=== PATIENT | male | born 1950 | race Caucasian/White ===

== ENCOUNTER 2017-10-10 14:28 | Emergency (ER) | payer MEDICARE, OTHER ==
[~2017-10-10] VITALS: Ht 177.8 cm; Wt 81.7 kg
[~2017-10-10 14:28] MED LIST: AMLO10 PO; BUSP10 PO; CALCA500CH PO; CHOL10002 PO; DIAZ5 PO; FURO40 PO; Isosorbide Dini30 MG PO; K-Dur 20 meq T20 MEQ PO; LOSA50 PO; Levaquin500 MG PO; NITR.6SL SL; Percocet 5-3251 EACH PO; Roxicodone15 MG PO; TAMS.4ER PO; WARF4 PO; WARF5 PO; Zofran Odt4 MG SL
[2017-10-10] MEDS ORDERED: Ultram50 MG PO (15:13)
== END 2017-10-10 15:19 | disposition home or self-care (01) ==
LOC: ER 14:28
DX: M25.511 Pain in right shoulder (principal); I10 Essential (primary) hypertension; F41.9 Anxiety disorder, unspecified; I48.91 Unspecified atrial fibrillation; Z91.09 Other allergy status, other than to drugs and biological substances
CPT/HCPCS: 99282

== ENCOUNTER 2018-01-30 14:00 | Inpatient (IN) | payer MEDICARE ==
[~2018-01-30] VITALS: Ht 177.8 cm; Wt 77.4 kg
[~2018-01-30 14:00] MED LIST changes: +Ultram50 MG PO
[2018-01-30 14:54] LABS: BASOPHILS ABSOLUTE AUTO 0.02 K/mm3 (0.00-0.23); BASOPHILS PERCENT AUTO 0 % (0-2); EOSINOPHILS ABSOLUTE AUTO 0.02 K/mm3 (0.00-0.68); EOSINOPHILS PERCENT AUTO 0 % (0-6); Hemoglobin 14.1 g/dL (13.5-17.5); IMMATURE GRAN ABSOLUTE AUTO 0.05 K/mm3 (0.00-0.10); IMMATURE GRAN PERCENT AUTO 1 % (0-1); LYMPHOCYTES ABSOLUTE AUTO 1.22 K/mm3 (0.84-5.20); LYMPHOCYTES PERCENT AUTO 11 % (21-46); MONOCYTES ABSOLUTE AUTO 0.68 K/mm3 (0.16-1.47); MONOCYTES PERCENT AUTO 6 % (4-13); Mean Corpuscular HGB 29.8 pg (26.0-34.0); Mean Corpuscular HGB Conc 35.3 g/dL (31.5-36.5); Mean Corpuscular Volume 85 fL (80-100); Mean Platelet Volume 8.9 fL (9.1-12.4); NEUTROPHILS ABSOLUTE AUTO 8.85 K/mm3 (1.96-9.15); NEUTROPHILS PERCENT AUTO 82 % (41-73); Platelet Count 200 K/mm3 (150-400); RDW Coefficient Variation 13.3 % (11.7-14.2); RDW Standard Deviation 41.1 fL (35.1-46.3); Red Blood Cell Count 4.73 M/mm3 (4.30-5.90); White Blood Cell Count 10.84 K/mm3 (4.00-11.30)
[2018-01-30 15:23] LABS: Alanine Aminotransfer (ALT/SGP 22 U/L (12-78); Albumin/Globulin Ratio 1.2 (0.8-1.8); Alk Phos 105 U/L (50-136); Anion Gap 10 mmol/L (6-16); Aspartate Aminotrans (AST/SGOT 17 U/L (12-37); Bilirubin, Total 0.7 mg/dL (0.1-1.0); Blood Urea Nitrogen 24 mg/dL (8-24); Bun/Creatinine Ratio 23.8 (12.0-20.0); CO2, Blood 28 mmol/L (21-32); Calcium, Blood 8.7 mg/dL (8.5-10.1); Chloride, Blood 102 mmol/L (98-108); Creatinine, Blood 1.01 mg/dL (0.60-1.20); Globulin, Blood 3.3 g/dL (2.2-4.0); Glomerular Filtration Rate >60 (60-); Glucose, Blood 93 mg/dL (70-99); Potassium, Blood 2.9 mmol/L (3.5-5.5); Sodium, Blood 140 mmol/L (136-145); Total Protein, Blood 7.3 g/dL (6.4-8.2); Troponin I 0.017 ng/mL (0.000-0.040)
[2018-01-30 17:11] LABS: Source, Urine Clean Catch
[2018-01-30 17:16] LABS: Bilirubin, Urine Neg (Neg); Blood, Urine 3+ (Neg); Glucose Qualitative, Urine Neg (Neg); Ketones, Urine Neg (Neg); Leukocyte Esterase, Urine Neg (Neg); Nitrite, Urine Neg (Neg); Protein, Urine 1+ (Neg); Urobilinogen, Urine NORM (Normal); pH, Urine 6.5 (5.0-8.0)
[2018-01-30 17:30] LABS: Appearance, Urine Clear (Clear); Color, Urine Yellow (P-Yellow)
[2018-01-30 17:33] LABS: White Blood Cells, Urine 0-2 /hpf (0-5)
[2018-01-30 17:34] LABS: Bacteria Few /hpf; Squamous Epithelial Cells Few /hpf (Few)
[2018-01-31 05:09] LABS: BASOPHILS ABSOLUTE AUTO 0.01 K/mm3 (0.00-0.23); BASOPHILS PERCENT AUTO 0 % (0-2); EOSINOPHILS ABSOLUTE AUTO 0.05 K/mm3 (0.00-0.68); EOSINOPHILS PERCENT AUTO 1 % (0-6); Hematocrit 38.5 % (37.0-53.0); Hemoglobin 12.9 g/dL (13.5-17.5); IMMATURE GRAN ABSOLUTE AUTO 0.03 K/mm3 (0.00-0.10); IMMATURE GRAN PERCENT AUTO 0 % (0-1); LYMPHOCYTES ABSOLUTE AUTO 1.77 K/mm3 (0.84-5.20); LYMPHOCYTES PERCENT AUTO 20 % (21-46); MONOCYTES ABSOLUTE AUTO 0.86 K/mm3 (0.16-1.47); MONOCYTES PERCENT AUTO 10 % (4-13); Mean Corpuscular HGB 28.7 pg (26.0-34.0); Mean Corpuscular HGB Conc 33.5 g/dL (31.5-36.5); Mean Corpuscular Volume 86 fL (80-100); Mean Platelet Volume 9.4 fL (9.1-12.4); NEUTROPHILS ABSOLUTE AUTO 6.32 K/mm3 (1.96-9.15); NEUTROPHILS PERCENT AUTO 70 % (41-73); Platelet Count 216 K/mm3 (150-400); RDW Coefficient Variation 13.6 % (11.7-14.2); RDW Standard Deviation 42.5 fL (35.1-46.3); White Blood Cell Count 9.04 K/mm3 (4.00-11.30)
[2018-01-31 05:20] LABS: Alanine Aminotransfer (ALT/SGP 17 U/L (12-78); Albumin, Blood 3.4 g/dL (3.4-5.0); Albumin/Globulin Ratio 1.2 (0.8-1.8); Alk Phos 90 U/L (50-136); Anion Gap 10 mmol/L (6-16); Aspartate Aminotrans (AST/SGOT 15 U/L (12-37); Bilirubin, Total 0.5 mg/dL (0.1-1.0); Blood Urea Nitrogen 31 mg/dL (8-24); Bun/Creatinine Ratio 31.6 (12.0-20.0); CO2, Blood 29 mmol/L (21-32); Calcium, Blood 8.4 mg/dL (8.5-10.1); Chloride, Blood 103 mmol/L (98-108); Creatinine, Blood 0.98 mg/dL (0.60-1.20); Globulin, Blood 2.8 g/dL (2.2-4.0); Glomerular Filtration Rate >60 (60-); Glucose, Blood 89 mg/dL (70-99); Potassium, Blood 2.9 mmol/L (3.5-5.5); Sodium, Blood 142 mmol/L (136-145); Total Protein, Blood 6.2 g/dL (6.4-8.2)
[2018-02-01 05:26] LABS: Anion Gap 8 mmol/L (6-16); Blood Urea Nitrogen 38 mg/dL (8-24); Bun/Creatinine Ratio 35.5 (12.0-20.0); CO2, Blood 26 mmol/L (21-32); Calcium, Blood 8.5 mg/dL (8.5-10.1); Chloride, Blood 105 mmol/L (98-108); Creatinine, Blood 1.07 mg/dL (0.60-1.20); Glomerular Filtration Rate >60 (60-); Glucose, Blood 124 mg/dL (70-99); Potassium, Blood 3.5 mmol/L (3.5-5.5); Sodium, Blood 139 mmol/L (136-145)
[2018-02-01] MEDS ORDERED: Hydrochloroth12.5 MG PO (11:53)
[2018-02-01] MEDS ORDERED: AMLO10 PO (11:53)
[2018-02-01] MEDS ORDERED: Prinivil10 MG PO (11:54)
[2018-02-01] MEDS ORDERED: LORA1 PO (11:55)
[2018-02-01] MEDS ORDERED: ASPI81CH PO (13:48)
== END 2018-02-01 12:56 | disposition home or self-care (01) | DRG 305 ==
LOC: ER 14:00 → PCU 14:01
PROVIDERS: Emergency Medicine; Internal Medicine
DX: I16.0 Hypertensive urgency (principal); I70.1 Atherosclerosis of renal artery; I11.9 Hypertensive heart disease without heart failure; I48.2 Chronic atrial fibrillation; K70.40 Alcoholic hepatic failure without coma; E87.6 Hypokalemia; I25.10 Atherosclerotic heart disease of native coronary artery without angina pectoris; G89.29 Other chronic pain; M25.559 Pain in unspecified hip; R00.1 Bradycardia, unspecified; T46.5X5A Adverse effect of other antihypertensive drugs, initial encounter; Y92.230 Patient room in hospital as the place of occurrence of the external cause; M19.90 Unspecified osteoarthritis, unspecified site; Z95.1 Presence of aortocoronary bypass graft; Z87.891 Personal history of nicotine dependence; Z91.14 Patient's other noncompliance with medication regimen; Z79.899 Other long term (current) drug therapy
CPT/HCPCS: 36415; 71046; 80048; 80053; 81001; 84132; 84484; 85025; 93005; 93010; 93975; 96361; 96372; 96374; 96375; 99285-25; G0378; J0360; J1650; J1885; J1940; J2405; J3480; J7030

== ENCOUNTER 2021-12-07 20:20 | Emergency (ER) | payer MEDICARE ==
[~2021-12-07] VITALS: Ht 177.8 cm; Wt 81.7 kg
[~2021-12-07 20:20] MED LIST changes: +ASPI81CH PO; +Hydrochloroth12.5 MG PO; +LORA1 PO; +Prinivil10 MG PO
[2021-12-07 21:04] LABS: BASOPHILS ABSOLUTE AUTO 0.03 K/mm3 (0.00-0.23); BASOPHILS PERCENT AUTO 0 % (0-2); EOSINOPHILS ABSOLUTE AUTO 0.09 K/mm3 (0.00-0.68); EOSINOPHILS PERCENT AUTO 1 % (0-6); Hematocrit 36.3 % (37.0-53.0); Hemoglobin 11.5 g/dL (13.5-17.5); IMMATURE GRAN ABSOLUTE AUTO 0.06 K/mm3 (0.00-0.10); IMMATURE GRAN PERCENT AUTO 1 % (0-1); LYMPHOCYTES ABSOLUTE AUTO 0.83 K/mm3 (0.84-5.20); LYMPHOCYTES PERCENT AUTO 10 % (21-46); MONOCYTES PERCENT AUTO 11 % (4-13); Mean Corpuscular HGB 26.6 pg (26.0-34.0); Mean Corpuscular HGB Conc 31.7 g/dL (31.5-36.5); Mean Corpuscular Volume 84 fL (80-100); Mean Platelet Volume 9.3 fL (9.1-12.4); NEUTROPHILS ABSOLUTE AUTO 6.54 K/mm3 (1.96-9.15); NEUTROPHILS PERCENT AUTO 77 % (41-73); Platelet Count 207 K/mm3 (150-400); RDW Coefficient Variation 14.7 % (11.7-14.2); RDW Standard Deviation 45.5 fL (35.1-46.3); Red Blood Cell Count 4.32 M/mm3 (4.30-5.90); White Blood Cell Count 8.45 K/mm3 (4.00-11.30)
[2021-12-07 21:25] LABS: Albumin, Blood 3.5 g/dL (3.4-5.0); Bilirubin, Total 0.5 mg/dL (0.1-1.0); Bun/Creatinine Ratio 14.1 (12.0-20.0); Creatinine, Blood 0.92 mg/dL (0.60-1.20); Globulin, Blood 3.6 g/dL (2.2-4.0); Potassium, Blood 3.4 mmol/L (3.5-5.5); Total Protein, Blood 7.1 g/dL (6.4-8.2)
[2021-12-08] MEDS ORDERED: Prednisone20 MG PO (03:04)
[2021-12-08] MEDS ORDERED: ALBU90OI INH (03:04)
== END 2021-12-08 03:13 | disposition home or self-care (01) ==
LOC: ER 20:20
PROVIDERS: Physician Assistant
DX: J44.1 Chronic obstructive pulmonary disease with (acute) exacerbation (principal); R07.89 Other chest pain; R06.02 Shortness of breath; I10 Essential (primary) hypertension; R51.9 Headache, unspecified; Z79.899 Other long term (current) drug therapy; Z79.52 Long term (current) use of systemic steroids; Z79.82 Long term (current) use of aspirin; Z88.8 Allergy status to other drugs, medicaments and biological substances; Z87.891 Personal history of nicotine dependence; Z95.0 Presence of cardiac pacemaker
CPT/HCPCS: 36415; 71045; 80053; 83880; 84484; 85025; 93005; 93010; 94640; 94664; 96374; 99285-25; A9270

== ENCOUNTER 2022-06-21 10:46 | Emergency (ER) | payer MEDICARE ==
[~2022-06-21] VITALS: Ht 177.8 cm; Wt 81.7 kg
[~2022-06-21 10:46] MED LIST changes: +ALBU90OI INH; +Prednisone20 MG PO
[2022-06-21] MEDS ORDERED: PLAVIX75 MG PO (11:04)
[2022-06-21] MEDS ORDERED: COREG25 MG PO (11:04)
[2022-06-21] MEDS ORDERED: OXYC5 (11:04)
[2022-06-21] MEDS ORDERED: XARELTO10 M1 PO (11:04)
[2022-06-21 11:17] LABS: BASOPHILS ABSOLUTE AUTO 0.03 K/mm3 (0.00-0.23); BASOPHILS PERCENT AUTO 0 % (0-2); EOSINOPHILS ABSOLUTE AUTO 0.07 K/mm3 (0.00-0.68); EOSINOPHILS PERCENT AUTO 1 % (0-6); Hematocrit 37.5 % (37.0-53.0); IMMATURE GRAN ABSOLUTE AUTO 0.05 K/mm3 (0.00-0.10); IMMATURE GRAN PERCENT AUTO 1 % (0-1); LYMPHOCYTES ABSOLUTE AUTO 0.94 K/mm3 (0.84-5.20); LYMPHOCYTES PERCENT AUTO 12 % (21-46); MONOCYTES PERCENT AUTO 9 % (4-13); Mean Corpuscular HGB 26.7 pg (26.0-34.0); Mean Corpuscular Volume 83 fL (80-100); Mean Platelet Volume 9.4 fL (9.1-12.4); NEUTROPHILS ABSOLUTE AUTO 6.38 K/mm3 (1.96-9.15); NEUTROPHILS PERCENT AUTO 78 % (41-73); Platelet Count 207 K/mm3 (150-400); RDW Standard Deviation 42.8 fL (35.1-46.3); White Blood Cell Count 8.17 K/mm3 (4.00-11.30)
[2022-06-21 11:30] LABS: Albumin, Blood 3.4 g/dL (3.4-5.0); Bilirubin, Total 0.3 mg/dL (0.1-1.0); Bun/Creatinine Ratio 18.3 (12.0-20.0); Calcium, Blood 8.7 mg/dL (8.5-10.1); Creatinine, Blood 1.09 mg/dL (0.60-1.20); Globulin, Blood 3.4 g/dL (2.2-4.0); Potassium, Blood 3.3 mmol/L (3.5-5.5); Total Protein, Blood 6.8 g/dL (6.4-8.2)
[2022-06-21 12:02] LABS: Influenza A, PCR NEGATIVE (NEGATIVE); Influenza B, PCR NEGATIVE (NEGATIVE); Resp Syncytial Virus, PCR NEGATIVE (NEGATIVE); SARS-Cov-2 (COVID-19) PCR, MMC NEGATIVE (NEGATIVE)
[2022-06-21] MEDS ORDERED: ALBU90OI INH (13:58)
== END 2022-06-21 14:18 | disposition home or self-care (01) ==
LOC: ER 10:46
PROVIDERS: Emergency Medicine
DX: J44.1 Chronic obstructive pulmonary disease with (acute) exacerbation (principal); M25.562 Pain in left knee; R22.42 Localized swelling, mass and lump, left lower limb; I10 Essential (primary) hypertension; Z88.8 Allergy status to other drugs, medicaments and biological substances; Z79.02 Long term (current) use of antithrombotics/antiplatelets; Z79.899 Other long term (current) drug therapy; Z79.82 Long term (current) use of aspirin; Z87.891 Personal history of nicotine dependence; Z20.822 Contact with and (suspected) exposure to COVID-19
CPT/HCPCS: 0241U; 71045; 73562-LT; 80053; 84484; 85025; 93005; 93010; A9270

== ENCOUNTER 2022-11-10 11:04 | Inpatient (IN) | payer MEDICARE ==
[~2022-11-10] VITALS: Ht 167.6 cm; Wt 81.4 kg
[~2022-11-10 11:04] MED LIST changes: +COREG25 MG PO; +OXYC5; +PLAVIX75 MG PO; +XARELTO10 M1 PO
[2022-11-10 11:30] LABS: BASOPHILS ABSOLUTE AUTO 0.03 K/mm3 (0.00-0.23); BASOPHILS PERCENT AUTO 0 % (0-2); EOSINOPHILS ABSOLUTE AUTO 0.03 K/mm3 (0.00-0.68); EOSINOPHILS PERCENT AUTO 0 % (0-6); Hematocrit 35.9 % (37.0-53.0); Hemoglobin 11.5 g/dL (13.5-17.5); IMMATURE GRAN ABSOLUTE AUTO 0.04 K/mm3 (0.00-0.10); IMMATURE GRAN PERCENT AUTO 1 % (0-1); LYMPHOCYTES ABSOLUTE AUTO 0.74 K/mm3 (0.84-5.20); LYMPHOCYTES PERCENT AUTO 9 % (21-46); MONOCYTES ABSOLUTE AUTO 0.56 K/mm3 (0.16-1.47); MONOCYTES PERCENT AUTO 7 % (4-13); Mean Corpuscular Volume 84 fL (80-100); Mean Platelet Volume 9.2 fL (9.1-12.4); NEUTROPHILS ABSOLUTE AUTO 6.61 K/mm3 (1.96-9.15); NEUTROPHILS PERCENT AUTO 83 % (41-73); Platelet Count 189 K/mm3 (150-400); RDW Coefficient Variation 14.5 % (11.7-14.2); RDW Standard Deviation 44.5 fL (35.1-46.3); Red Blood Cell Count 4.26 M/mm3 (4.30-5.90); White Blood Cell Count 8.01 K/mm3 (4.00-11.30)
[2022-11-10 11:44] LABS: Albumin, Blood 3.7 g/dL (3.4-5.0); Albumin/Globulin Ratio 1.3 (0.8-1.8); Bilirubin, Total 0.5 mg/dL (0.1-1.0); Bun/Creatinine Ratio 24.4 (12.0-20.0); Calcium, Blood 8.6 mg/dL (8.5-10.1); Creatinine, Blood 0.98 mg/dL (0.60-1.20); Globulin, Blood 2.9 g/dL (2.2-4.0); Magnesium, Blood 2.2 mg/dL (1.6-2.4); Potassium, Blood 3.5 mmol/L (3.5-5.5); Total Protein, Blood 6.6 g/dL (6.4-8.2)
[2022-11-10 17:50] VITALS: BP 194/72
--- NOTE | 2022-11-10 18:23 | NUR ---
PCU ADMIT / END OF SHIFT PT BROUGHT TO PCU-02 BY ALMA FROM ER @ APPROX 1745. PT ABLE TO STAND & AMBULATE FROM [facility] TO PCU BED W/ SBA. PT A&O X4. BP ELEVATED, OTHERWISE VSS. MONITOR SHOWING AFIB, HR 60s-80s. PACER SPIKES NOTED WHEN HR 60s. PT SOB W/ MINIMAL ACTIVITY. SPO2 > 92% ON RA. PT REPORTING BLURRY VISION SINCE YESTERDAY AFTERNOON. PT REPORTING "STABBING" PAIN IN "NECK, ARMS & LUNGS SINCE 2:00 THIS MORNING." PT FURTHER REPORTING INABILITY TO BREATHE W/ PAIN. PT STATING "I WAS A FULL BLOWN ALCOHOLIC WHEN MY , BUT I HAVEN'T HAD ANYTHING TO DRINK SINCE 2008." PT REPORTING SYNCOPAL EPISODE THIS AM. PT STATING "I JUST FELL OVER. I WAS SITTING ON THE STAIRS. EVERYTHING STARTED SPINNING, THEN EVERYTHING WENT BLACK. I DON'T KNOW HOW LONG I LAYED THERE. THEN WHEN I WOKE UP I WAS REALLY WEAK." PT REPORTS DIZZY EPISODE AGAIN WHILE IN ER, STATING "EVERYTHING STARTED SPINNING & STARTED TO GET DARK, BUT IT DIDN'T GO ALL THE WAY DARK LIKE IT DID THIS MORNING." PT AGREEABLE TO USE CALL LIGHT BEFORE GETTING UP WHILE IN HOSPITAL.
[2022-11-10] MEDS ORDERED: ELIQUIS5 M2 PO (19:43)
[2022-11-10 19:44] VITALS: BP 129/61
[2022-11-10 20:13] LABS: Creatine Kinase MB 2.3 ng/mL (0.0-3.6); Creatine Kinase MB Index 2.8 (0.0-4.0); Thyroid Stimulating Hormone 0.432 uIU/mL (0.360-4.800)
[2022-11-10 23:31] VITALS: BP 149/68
[2022-11-11] VITALS (7 sets, daily range): BP systolic 138–161; BP diastolic 58–68
[2022-11-11 01:55] LABS: Hematocrit 34.8 % (37.0-53.0); Hemoglobin 11.3 g/dL (13.5-17.5); Mean Corpuscular HGB 27.1 pg (26.0-34.0); Mean Corpuscular HGB Conc 32.5 g/dL (31.5-36.5); Mean Corpuscular Volume 84 fL (80-100); Mean Platelet Volume 9.4 fL (9.1-12.4); Platelet Count 213 K/mm3 (150-400); RDW Coefficient Variation 14.7 % (11.7-14.2); RDW Standard Deviation 44.6 fL (35.1-46.3); Red Blood Cell Count 4.17 M/mm3 (4.30-5.90); White Blood Cell Count 9.29 K/mm3 (4.00-11.30)
[2022-11-11 02:02] LABS: Albumin, Blood 3.2 g/dL (3.4-5.0); Albumin/Globulin Ratio 1.2 (0.8-1.8); Bilirubin, Total 0.4 mg/dL (0.1-1.0); Bun/Creatinine Ratio 25.9 (12.0-20.0); Calcium, Blood 8.6 mg/dL (8.5-10.1); Creatine Kinase MB 1.9 ng/mL (0.0-3.6); Creatine Kinase MB Index 2.5 (0.0-4.0); Creatinine, Blood 1.62 mg/dL (0.60-1.20); Globulin, Blood 2.7 g/dL (2.2-4.0); Magnesium, Blood 2.3 mg/dL (1.6-2.4); Phosphorus, Blood 3.6 mg/dL (2.5-4.9); Potassium, Blood 4.1 mmol/L (3.5-5.5); Total Protein, Blood 5.9 g/dL (6.4-8.2)
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
--- NOTE | 2022-11-11 04:41 | NUR ---
PCU 02 SHIFT SUMMARY PT IS A&OX4 BUT CAN BE ANXIOUS AT TIMES. HE HAD 1MG ATIVAN PO FOR HIS ANXIETY. HE HAS BEEN COOPERATIVE W/ CARE AND CALLS APPROPRIATELY.. PT HAS BEEN HYPERTENSIVE BUT IT HAS IMPROVED SINCE COMING TO THE HOSPITAL. HE WAS GIVEN BP MEDICATIONS PER EMAR. AT ABOUT 0110 THIS AM THE PT HAD SOME NEURO CHANGES. SEE PREVIOUS NOTE FOR MORE INFORMATION. HE IS NOW ABLE TO MOVE ALL HIS EXTREMITIES, AND HIS LEFT SIDED FACIAL DROOP IS ALMOST GONE. PT C/O A HEADACHE AND DIZZINESS ABOUT AN HOUR BEFORE THE EVENT. HE STATED THAT WHEN HIS EYES GET DRY, HE GETS DIZZY AND A HEADACHE. DIZZINESS SUBSIDED AFTER THE DROPS. NO OTHER NEURO EVENTS SINCE. PT IS ON ROOM AIR, BUT GETS SOB W/ ANY EXERTION. SP02 >90%. SEE NOTES FOR ANY UPDATES.
--- NOTE | 2022-11-11 13:10 | NUR ---
ORTHOSTATIC VITALS PT LAYING IN BED FEELING SOB. SPO2 >92% ON RA. VSS. PT ASSISTED TO SIT UP ON EDGE OF BED. PT REPORTING FEELING "SOMETHINGS NOT RIGHT". PT THEN FURTHER REPORTING FEELING "WEAK & DIZZY". PT UNABLE TO STAND SAFELY. PT ASSISTED BACK TO LAYING POSITION. PT FEELING BETTER LAYING DOWN. DR PERSON NOTIFIED.
--- NOTE | 2022-11-11 17:17 | NUR ---
SHIFT SUMMARY PT IS A&O x4. VSS. SPO2 >92% ON RA. PT INTERMITTENTLY AFIB/PACED HR 60'S-80'S. PT C/O OF BLURRY VISION IN BOTH EYES FOR THE PAST TWO DAYS. PT C/O SOB WITH MINIMAL MOVEMENTS. PT C/O OFF AND ON "STABBING AND TIGHT" CP WITH REPORTS OF FEELING "DIZZY". NITRO GIVEN X3. WELL PRN OXYCODONE PER EMAR W/ PT LATER REPORTING RELIEF. EKG DONE AND IN CHART. MD AWARE. ECHO DONE IN ROOM TODAY, SEE REPORTS FOR RESULTS. PT C/O LEG PAIN AND "NUMBNESS". PT LYING IN BED WITH CALL LIGHT IN REACH. MD TO BEDSIDE DISCUSSING CARE W/ PT. PT AGREEABLE TO BE SEEN BY VASCULAR DR, STATING "I CAN'T KEEP LIVING LIKE THIS, THIS IS NO WAY TO LIVE".
[2022-11-12 04:29] VITALS: BP 127/71
--- NOTE | 2022-11-12 06:40 | NUR ---
SHIFT SUMMARY PATIENT ALERT AND ORIENTED X4. PATIENT VERY PAINFUL OVERNIGHT STATING THAT HE FEELS LIKE HIS JOINTS ARE ON FIRE. MEDICATED PER EMAR FOR PAIN AND ANXIETY. PATIENT DEPRESSED, SAYING THINGS LIKE "IF I'M GOING TO HAVE TO LIVE WITH THIS PAIN I WANT TO TALK TO THE DOCTOR ABOUT THE PILL" AND ASKING THIS NURSE IF HE IS DYING. PATIENT BECOMES SHORT OF BREATH VERY EASILY WITH ANY FORM OF EXERTION. VITAL SIGNS STABLE. WILL CONTINUE TO MONITOR. CALL LIGHT WITHIN REACH.
[2022-11-12 08:07] VITALS: BP 166/66
--- NOTE | 2022-11-12 08:29 | NUR ---
Pt appears tired, minimally conversant, and asking for pain medication for the past hour. Given Oxycodone 10 mg at this time, per prn orders. He has been getting it every 6 hours as he asks for it. He says that his pain is in the back of his neck and all over his lungs. STates hurts worse with movement and inspiration. He appears to be sleeping soon after administration of a.m. meds.
[2022-11-12 09:34] LABS: Albumin, Blood 3.3 g/dL (3.4-5.0); Albumin/Globulin Ratio 1.2 (0.8-1.8); Bilirubin, Total 0.4 mg/dL (0.1-1.0); Bun/Creatinine Ratio 33.8 (12.0-20.0); Calcium, Blood 8.4 mg/dL (8.5-10.1); Creatinine, Blood 1.51 mg/dL (0.60-1.20); Globulin, Blood 2.7 g/dL (2.2-4.0); Magnesium, Blood 2.3 mg/dL (1.6-2.4); Phosphorus, Blood 3.1 mg/dL (2.5-4.9); Potassium, Blood 3.7 mmol/L (3.5-5.5)
--- NOTE | 2022-11-12 10:01 | NUR ---
Pt continues to appear drowsy, states that he is exhausted after not getting good sleep for 3 days. He is also saying that his pain is unrelieved and he is asking for something stronger. States that this pain is different from his chronic pain. His pain is in his lower neck and throughout his lungs.
--- NOTE | 2022-11-12 10:22 | NUR ---
Dr. Keller here, saw the patient. New order received for IV steroids.
[2022-11-12 11:24] VITALS: BP 144/72
--- NOTE | 2022-11-12 11:31 | NUR ---
SOLU-MEDROL ADMINISTERED DIRECTED. PATIENT STATES STILL IN PAIN AND NO CHANGES IN BREATHING.
--- NOTE | 2022-11-12 12:12 | NUR ---
Pt resting in bed and is A&OX4. Brief review of plan of care. Listened as Pt reports being , losing his from cancer in 2007. He reports having 3 sons and several grandchildren, all of whom live in [place]. He reports having regular contact with family. Listened as Pt reports visiting the hospital many times in [facility] over the last year. He reports physicians have recommended hospice in the past due to his frequent hospital visits. Continued therapeutic listening. Engaged in therapeutic discussion regarding advanced care planning. Educated on disease process including trajectory. Discussed the importance of planning for the future as disease progresses including needing to consider hospice in the future. Ended visit to allow Pt to rest. Pt agreeable to continued PC visits. Spoke with Primary RN Magaly and discussed case. Palliative Care will remain available
--- NOTE | 2022-11-12 15:14 | NUR ---
Pt had c/o chest tightness and knee pain. The knee pain has been going on for a month, associated with what appears to be a bony tuberosity on both knees, medial aspect. The left one is larger than the right. PT states that he has not seen his PCP for it. The chest tightness he says is new. Reports that his breathing feels better after getting the solumedrol. He was given oxycodone for the pain, and the chest discomfort resolved, but his knees are still feeling "like a Charley-horse" he says. Call to Dr. Keller to report pt's condition; no new orders received.
[2022-11-12 17:39] VITALS: BP 173/86
--- NOTE | 2022-11-12 17:51 | NUR ---
PT EATING, SITTING UP IN BED. HAVING TO TAKE BREAKS FROM EATING, STATING THAT HE "IS SHORT OF BREATH". SPO2 IS 96% ON ROOM AIR. PT ASKED WHEN HE CAN HAVE MORE PAIN MEDICATION AND ANXIETY MEDICATION. I LET HIM KNOW THAT I WOULD CHECK WITH THE OTHER NURSE AND GET BACK TO HIM.
[2022-11-12 20:10] VITALS: BP 163/71
[2022-11-13 00:02] VITALS: BP 173/76
[2022-11-13 04:38] VITALS: BP 179/81
[2022-11-13 04:54] LABS: Albumin, Blood 3.3 g/dL (3.4-5.0); Anion Gap 7 mmol/L (6-16); Blood Urea Nitrogen 49 mg/dL (8-24); Bun/Creatinine Ratio 38.9 (12.0-20.0); CHOL/HDL RATIO 4.9; CO2, Blood 26 mmol/L (21-32); Calcium, Blood 8.2 mg/dL (8.5-10.1); Chloride, Blood 104 mmol/L (98-108); Cholesterol 200 mg/dL (50-200); Creatinine, Blood 1.26 mg/dL (0.60-1.20); Glomerular Filtration Rate 61 (60-); Glucose, Blood 145 mg/dL (70-99); HDL Cholesterol 41 mg/dL (>39); LDL/HDL RATIO 3.4; Low Density Lipoprotein Chol 141 mg/dL (0-110); Phosphorus, Blood 3.3 mg/dL (2.5-4.9); Potassium, Blood 4.3 mmol/L (3.5-5.5); Sodium, Blood 137 mmol/L (136-145); Triglycerides 88 mg/dL (30-160); Very Low Density Lipoprot Chol 17 mg/dL (6-32)
--- NOTE | 2022-11-13 06:51 | NUR ---
SHIFT SUMMARY PATIENT ALERT AND ORIENTED X 4. PATIENT WOKE UP CONFUSED THIS MORNING THINKING HE WAS AT HOME AND HAD TO BE REORIENTED THAT HE WAS STILL IN THE HOSPITAL. BED ALARM ON PATIENT HAS OCCASIONAL DIZZINESS WHEN HE GETS UP AND PATIENT FORGETS TO USE HIS CALL LIGHT WHEN HE NEEDS TO USE THE RESTROOM. MEDICATED PER EMAR FOR PAIN AND ANXIETY. SPO2 > 90% ON ROOM AIR, LUNG SOUNDS WHEEZY. PATIENT REPORTS THAT IT FEELS LIKE HIS LUNGS ARE BURNING. HEART RATE STABLE, BLOOD PRESSURE HYPERTENSIVE. WILL CONTINUE TO MONITOR. CALL LIGHT WITHIN REACH.
[2022-11-13 07:15] VITALS: BP 159/84
--- NOTE | 2022-11-13 09:27 | NUR ---
THIS RN CHECKED ON PATIENT AND HE WAS SITTING UP IN HIS CHAIR AT APPROX 0900. PASSING MEDICATIONS IN ANOTHER ROOM AND CAME OUT TO CHECK ON PATIENT AT APPROX 0910. PATIENT WAS NOT IN ROOM, TELE BOX WAS STILL RECIEVING SIGNAL. NOTIFIED DIVERSIFIED CROPS FARMWORKER. WALKED AROUND BUILDING AND CHECKED STAIRWAYS. NOTIFIED SECURITY AND NURSING HVAC SERVICE TECH. SECURITY CURRENTLY CHECKING CAMERAS. PT WAS WEARING A FLANNEL SHIRT FROM HOME AND HIS PANTS AND SHOES. NOTFIED DR. PERSON. PT HAS BEEN AMBULATING IN HIS ROOM WELL WITH NO WEAKNESS TODAY. PT LEFT WITH TELE BOX AND AN IV INTACT. ATTEMPTING TO CALL PATIENT CELL PHONE AND FAMILY.
--- NOTE | 2022-11-13 10:58 | NUR ---
PT IS BACK IN HIS ROOM AT THIS TIME. PT IN A HOSPITAL GOWN NOW. EDUCATED ON IMPORTANCE OF NOT LEAVING ROOM WITHOUT NOTIFYING STAFF. PT CURRENTLY RESTING IN BED. HE AMBULATED WELL DURING HIS WALK. UNSURE OF WHERE PATIENT WALKED.
[2022-11-13 15:18] VITALS: BP 160/76
--- NOTE | 2022-11-13 16:35 | NUR ---
SHIFT SUMMARY PT CONTNIUES TO AMBULATE WELL. REPORTED FEELING WORSE AFTER HIS WALK, BUT POST PAIN MEDICATION HE STATES HE FEELS MUCH BETTER. CTA DONE TODAY. PT RESTING IN BED ENJOYING HIS DR. GURROLA. HR REMAINS SINUS RHYTHM. [id number] WITH SOME FORGETFULLNESS. PLAN IS TO AWAIT CTA RESULTS AND POSSIBLY DISCHARGE.
[2022-11-13 19:50] VITALS: BP 170/71
[2022-11-14 00:43] VITALS: BP 150/68
--- NOTE | 2022-11-14 04:00 | NUR ---
SHIFT SUMMARY PT RESTLESS AND IMPULSIVE AT THE START OF THE SHIFT, PT OOB FREQUENTLY SETTING OFF HIS BED ALARM. PT HOWEVER IS PLESANT AND REDIRECTABLE. PT CAUGHT SMOKING IN HIS BATHROOM THIS SHIFT. REMINDED PT OF OUR TOBACCO FREE POLICY AND THAT SMOKING ON HOSPITAL PREMISES IS PROHIBITED. BACKUP ADMINISTRATIVE COORDINATOR AND NURSING DRYWALLER MADE AWARE. PT EXPRESSED UNDERSTANDING, NICOTINE PATCH PROVIDED TO PT. OTHERWISE NO OTHER CHANGES OVERNIGHT, ASSESSMENT REMAINS UNCHANGED. BED IN LOWEST POSITION, CALL LIGHT WITHIN REACH.
[2022-11-14 04:23] VITALS: BP 138/54
[2022-11-14 07:54] VITALS: BP 175/63
--- NOTE | 2022-11-14 10:44 | NUR ---
ASSESSMENT/PROVIDER VISIT FULL ASSESSMENT CHARTED. PT DROWSY THIS MORNING WHEN IN ROOM, PT IS CONTINUALLY ASKING FOR ATIVAN AND OXYCODONE, HOWEVER PT THEN QUICKLY FALLS BACK ASLEEP. PT MEDICATED WITH OXYCODONE 5MG PER EMAR. HAVE NOT MEDICATED WITH ATIVAN PT IS DROWSY AND QUESTIONING WHETHER MEDICATIONS ARE CONTRIBUTING TO PTS CONFUSION. DR. PERSON TO BEDSIDE. PT ALSO ASKS PROVIDER FOR ATIVAN AND OXYCODONE. PROVIDER UPDATED ON PT STATUS AND MEDICATIONS, AND REASONING FOR HOLDING ATIVAN AT THIS TIME. PROVIDER AGREES WITH PLAN. DR. PERSON TO BEDSIDE. PT AGREEABLE TO PLAN FOR DISCHARGE. PT EDUCATED ON NEED FOR OUTPATIENT FOLLOW UP FOR POSSIBLE ESOPHOGEAL MASS FOUND ON CT SCAN. NO ADDITIONAL NEEDS AT THIS TIME.
[2022-11-14] MEDS ORDERED: IPRAT-ALBUT 0.5-3 ML INH (12:04)
[2022-11-14] MEDS ORDERED: DULERA 100 MCG/13 GM INH (12:05)
[2022-11-14] MEDS ORDERED: Prinivil10 MG PO (12:05)
[2022-11-14] MEDS ORDERED: MIRALAX17 GM PO (12:06)
[2022-11-14] MEDS ORDERED: ATOR10 PO (12:06)
[2022-11-14] MEDS ORDERED: FURO20 PO (12:12)
[2022-11-14] MEDS ORDERED: Percocet 5-3251 EACH PO (12:12)
[2022-11-14] MEDS ORDERED: Deltasone 10 mg10 MG PO (12:14)
--- NOTE | 2022-11-14 14:40 | NUR ---
DISCHARGE PT DISCHARGE COMPLETED, HOWEVER PT IS WAITING FOR RIDE. PT LIVES IN [place] AND [place]SE[place] FAMILY IS IN [place] AND UNABLE TO ASSIST WITH TRANSPORT. PT ATTEMPTING TO GET IN CONTACT WITH FRIENDS THAT LIVE NEAR HIM BUT HAVING TROUBLE CONTACTING. PT WANTING TO GO FOR WALK. PT ENCOURAGED TO STAY ON UNIT BUT PT STATES THAT HE WANTS TO GO OUTSIDE "AND GET FRESH AIR". PT AGAIN ENCOURAGED TO STAY ON UNIT, PT AGAIN DECLINES. PT IS AGREEABLE TO THIS RN REMOVING IV. PT EDUCATED TO RETURN TO UNIT AND NOT TO LEAVE EVEN IF HIS RIDE BECOMES AVAILABLE WHILE HE OUT SO THAT STAFF CAN PROVIDE D/C INSTRUCTION. PT AGREEABLE.
--- NOTE | 2022-11-14 16:20 | NUR ---
PT HAS NOT RETURNED. THIS RN HAS CHECKED BOTH EXITS AND WAS NOT ABLE TO LOCATE PT. PT DID TAKE BELONGINGS BAG WITH HIM WHEN HE WENT FOR HIS WALK. DISCUSSED WITH TOOL GRINDER SET UP OPERATOR GEAR ALONSO AND REAL ESTATE EXECUTIVE ASSISTANT LASHANDA. PLAN TO DISCHARGE PT FROM SYSTEM AT THIS TIME. IF PT RETURNS WILL SET UP TAXI RIDE.
--- NOTE | 2022-11-14 17:44 | NUR ---
PT RETURNS TO UNIT. STATES THAT HE "FORGOT HIS DISCHARGE INSTRUCTIONS". THIS RN OBTAINS D/C INSTRUCTION PACKET AND REVIEWS WITH PT WHO VERBALIZES UNDERSTANDING. PACKET WITH RX PROVIDED TO PT. PT DENIES ANY ADDITIONAL QUESTIONS. PT STATES THAT HE HAS A RIDE ON THE WAY AND THAT HE WILL WAIT FOR THEM OUTSIDE BY THE STATUE.
== END 2022-11-14 14:50 | disposition home or self-care (01) | DRG 291 ==
LOC: ER 11:04 → PCU 11:05
PROVIDERS: Emergency Medicine; ADMIT Internal Medicine
DX: I11.0 Hypertensive heart disease with heart failure (principal); I50.33 Acute on chronic diastolic (congestive) heart failure; J96.91 Respiratory failure, unspecified with hypoxia; J44.1 Chronic obstructive pulmonary disease with (acute) exacerbation; I48.20 Chronic atrial fibrillation, unspecified; N17.9 Acute kidney failure, unspecified; Z66 Do not resuscitate; F41.9 Anxiety disorder, unspecified; M19.90 Unspecified osteoarthritis, unspecified site; I08.1 Rheumatic disorders of both mitral and tricuspid valves; I27.20 Pulmonary hypertension, unspecified; I16.0 Hypertensive urgency; I65.23 Occlusion and stenosis of bilateral carotid arteries; I73.9 Peripheral vascular disease, unspecified; I25.10 Atherosclerotic heart disease of native coronary artery without angina pectoris; N40.0 Benign prostatic hyperplasia without lower urinary tract symptoms; K76.1 Chronic passive congestion of liver; K22.89 Other specified disease of esophagus; M25.519 Pain in unspecified shoulder; R74.01 Elevation of levels of liver transaminase levels; R59.1 Generalized enlarged lymph nodes; M54.2 Cervicalgia; G89.29 Other chronic pain; Z91.148 Patient's other noncompliance with medication regimen for other reason; Z98.52 Vasectomy status; Z79.82 Long term (current) use of aspirin; Z95.0 Presence of cardiac pacemaker; I25.2 Old myocardial infarction; Z95.1 Presence of aortocoronary bypass graft; Z87.891 Personal history of nicotine dependence; Z79.51 Long term (current) use of inhaled steroids; Z79.01 Long term (current) use of anticoagulants; Z79.899 Other long term (current) drug therapy; Z79.02 Long term (current) use of antithrombotics/antiplatelets; Z88.8 Allergy status to other drugs, medicaments and biological substances; Z79.811 Long term (current) use of aromatase inhibitors; Z86.73 Personal history of transient ischemic attack (TIA), and cerebral infarction without residual deficits
CPT/HCPCS: 36415; 70450; 71046; 71275; 80053; 80061; 80069; 82550; 82553; 83690; 83735; 83880; 84100; 84145; 84443; 84484; 85025; 85027; 85730; 93005; 93010; 93306; 93880; 94640; 94644; 94664; 94760; 94762; 96374; 96375; 96376; 99285-25; A9270; G0378; J0360; J1940; J2060; J2270; J2405; J2920; Q9967